=== PATIENT | male | born 1970 | race Caucasian/White ===

== ENCOUNTER 2021-05-12 12:06 | Outpatient (CLI) | payer BC | END 2021-05-12 12:07 | disposition home or self-care (01) | LOC: BICRAD 12:06 | PROVIDERS: ATTEND Family Medicine | DX: M47.22 Other spondylosis with radiculopathy, cervical region (principal); M51.14 Intervertebral disc disorders with radiculopathy, thoracic region; M41.9 Scoliosis, unspecified | CPT/HCPCS: 72052; 72072 ==